=== PATIENT | female | born 1960 | race Asian ===

== ENCOUNTER 2021-02-16 22:59 | Emergency (ER) | payer BC ==
[~2021-02-16] VITALS: Ht 157.5 cm; Wt 49.9 kg
[2021-02-16 23:24] VITALS: BP 143/90
[2021-02-17] MEDS ORDERED: TETRACAINE HCL/PF 0.5% OPTH 4 ML BTL ONE (00:30)
[2021-02-17] MEDS ORDERED: FLUORESCEIN OPTH STRIP 1 MG ONE (00:30)
[2021-02-17] MEDS ORDERED: FLUORESCEIN OPTH STRIP 1 MG OP ONE (00:55)
[2021-02-17] MEDS ORDERED: TETRACAINE HCL/PF 0.5% OPTH 4 ML BTL OP ONE (00:55)
[2021-02-17 01:43] LABS: BASOPHILS % (AUTO) 0.6 % (0.0-2.0); EOSINOPHILS # (AUTO) 0.1 K/uL (0-0.4); EOSINOPHILS % (AUTO) 1.2 % (0.0-4.0); HEMATOCRIT 40.1 % (36-48); HEMOGLOBIN 13.2 g/dL (12.0-16.0); LYMPHOCYTES # (AUTO) 2.2 K/uL (2.5-16.5); LYMPHOCYTES % (AUTO) 38.6 % (20.5-51.1); MEAN CORPUSCULAR HEMOGLOBIN 29 pg (27-31); MEAN CORPUSCULAR HGB CONC 33 g/dL (33-37); MONOCYTES # (AUTO) 0.4 K/uL (0.8-1.0); MONOCYTES % (AUTO) 6.7 % (1.7-9.3); NEUTROPHILS % (AUTO) 52.9 % (42.2-75.2); PLATELET COUNT (AUTO) 194 K/uL (140-450); RED BLOOD CELL COUNT(AUTO) 4.55 MIL/uL (4.20-5.40); RED CELL DISTRIBUTION WIDTH 13.8 % (11.6-13.7); WHITE BLOOD COUNT (AUTO) 5.6 K/uL (4.8-10.8)
[2021-02-17 01:58] LABS: ANION GAP 12.4 (8-16); CARBON DIOXIDE 26.4 mmol/L (21-32); CREATININE 0.6 mg/dL (0.6-1.3); POTASSIUM 3.8 mmol/L (3.5-5.1)
[2021-02-17 05:24] VITALS: BP 160/79
== END 2021-02-17 05:24 | disposition short-term general hospital (02) ==
LOC: MED 22:59
DX: H33.21 Serous retinal detachment, right eye (principal); H53.8 Other visual disturbances
CPT/HCPCS: 36415; 70450; 80048; 85025; 99285